=== PATIENT | male | born 1980 | race American Indian/Alaskan Native ===

== ENCOUNTER 2021-02-02 22:32 | Inpatient (IN) | payer OTHER ==
[2021-02-02] MEDS ORDERED: FAMOTIDINE 20 MG/2 ML INJ IV ONE (23:15)
[2021-02-02] MEDS ORDERED: SODIUM CHLORIDE 0.9% 1000 ML 1,000 ML IV ONE (23:15)
[2021-02-02] MEDS ORDERED: MORPHINE 4 MG/1 ML INJ IV ONE (23:15)
[2021-02-02] MEDS ORDERED: DICYCLOMINE 20 MG TAB PO ONE (23:15)
[2021-02-02] MEDS ORDERED: ONDANSETRON 4 MG/2 ML INJ IV ONE (23:15)
[2021-02-02 23:19] LABS: Bilirubin,Urine NEG (Negative); Blood,Urine NEG (Negative); Color,Urine Amber (Yellow); Mucus,Urine FEW /HPF; Protein,Urine <15 mg/dL mg/dL (Negative)
[2021-02-03 00:23] LABS: Basophils % (Auto) 0.3 % (0.0-1.8); Eosinophils # (Auto) 0.1 K/mm3 (0.0-0.4); Hematocrit 43.8 % (35.5-45.6); Hemoglobin 14.8 gm/dl (11.8-15.2); Lymphocytes # (Auto) 1.9 K/mm3 (1.2-5.4); Lymphocytes % (Auto) 22.9 % (13.4-35.0); Mean Corpuscular HGB Conc 34 % (32-34); Mean Corpuscular Volume 91 fl (84-94); Monocytes # (Auto) 0.9 K/mm3 (0.0-0.8); Monocytes % (Auto) 10.2 % (0.0-7.3); Platelet Count 251 K/mm3 (140-440); Red Cell Distribution Width 13.4 % (13.2-15.2)
[2021-02-03 00:55] LABS: Alanine Aminotransferase 225 units/L (7-56); Albumin 4.5 g/dL (3.9-5); BUN/Creatinine Ratio 10; Blood Urea Nitrogen 9 mg/dL (9-20); Calcium 9.6 mg/dL (8.4-10.2); Hemolysis Index 3
--- NOTE | 2021-02-03 00:56 | Emergency Department Report ---
ED Abdominal Pain HPI - General Chief Complaint: Abdominal Pain Stated Complaint: ABD PAIN Time Seen by Provider: 02/02/21 23:15 Source: patient Mode of arrival: Ambulatory Limitations: No Limitations - History of Present Illness Initial Comments: This is a 40-year-old male nontoxic, well nourished in appearance, no acute signs of distress presents to the ED with c/o of nausea and abdominal pain several days. Patient denies any vomiting. Patient describes abdominal pain as cramping and aching with level of 8/10 to mid and upper abdomen. Patient denies any radiation of pain. Patient denies chest pain, short of breath, fever, hemoptysis, blood in stool, chills, headache, stiff neck, numbness or tingling. Patient denies any diarrhea or constipation. Denies any blood in stool. Patient denies any recent travels. Patient denies any drug allergies or significant past medical history. MD Complaint: abdominal pain -: days(s) Location: LUQ, RUQ Radiation: none Migration to: no migration Severity: mild Severity scale (0 -10): 8 Quality: cramping, aching Consistency: constant Improves With: nothing Worsens With: nothing Associated Symptoms: nausea. denies: vomiting, diarrhea, fever, chills, constipation, dysuria, hematemesis, hematochezia, melena, hematuria, anorexia, syncope - Related Data Allergies Allergy/AdvReac Type Severity Reaction Status Date / Time No Known Allergies Allergy Unverified 02/02/21 22:45 ED Review of Systems ROS: Stated complaint: ABD PAIN Other details as noted in HPI Comment: All other systems reviewed and negative Constitutional: denies: chills, fever Eyes: denies: eye pain, eye discharge, vision change ENT: denies: ear pain, throat pain Respiratory: denies: cough, shortness of breath, wheezing Cardiovascular: denies: chest pain, palpitations Endocrine: no symptoms reported Gastrointestinal: abdominal pain, nausea. denies: vomiting, diarrhea, constipation, hematemesis, melena, hematochezia Genitourinary: denies: urgency, dysuria Musculoskeletal: denies: back pain, joint swelling, arthralgia Skin: denies: rash, lesions Neurological: denies: headache, weakness, paresthesias Psychiatric: denies: anxiety, depression Hematological/Lymphatic: denies: easy bleeding, easy bruising ED Past Medical Hx - Past Medical History Previous Medical History?: No - Surgical History Past Surgical History?: No - Social History Smoking Status: Never Smoker Substance Use Type: Alcohol ED Physical Exam - General Limitations: No Limitations General appearance: alert, in no apparent distress - Head Head exam: Present: atraumatic, normocephalic - Eye Eye exam: Present: normal appearance - Neck Neck exam: Present: normal inspection, full ROM. Absent: tenderness, meningismus, lymphadenopathy - Respiratory Respiratory exam: Present: normal lung sounds bilaterally. Absent: respiratory distress, wheezes, rales, rhonchi, stridor, chest wall tenderness, accessory muscle use, decreased breath sounds, prolonged expiratory - Cardiovascular Cardiovascular Exam: Present: regular rate, normal rhythm, normal heart sounds. Absent: bradycardia, tachycardia, irregular rhythm, systolic murmur, diastolic murmur, rubs, gallop - GI/Abdominal GI/Abdominal exam: Present: distended (diffuse), tenderness (upper), normal bowel sounds. Absent: soft, guarding, rebound, rigid, diminished bowel sounds - Extremities Exam Extremities exam: Present: normal inspection, full ROM - Back Exam Back exam: Present: normal inspection, full ROM. Absent: tenderness, CVA tenderness (R), CVA tenderness (L), muscle spasm, paraspinal tenderness, vertebral tenderness, rash noted - Neurological Exam Neurological exam: Present: alert, oriented X3, normal gait - Psychiatric Psychiatric exam: Present: normal affect, normal mood - Skin Skin exam: Present: warm, dry, intact, normal color. Absent: rash ED Course Vital Signs 02/02/21 02/02/21 02/02/21 22:46 23:23 23:53 Temperature 98.2 F Pulse Rate 85 Respiratory 16 16 16 Rate Blood Pressure 152/95 O2 Sat by Pulse 98 Oximetry - Reevaluation(s) Reevaluation #1: 02/03/21 01:32 Patient is speaking in full sentences with no signs of distress noted. - Consultations Consultation #1: 02/03/21 02:46 Patient has been consulted with Dr. Woods about patient history, physical exam, and labs/CT results and agrees to the ED plan of care with NPO, IV fluids, and antibiotics and admission with hospitalist Consultation #2: 02/03/21 03:48 Patient has been consulted with Dr. Hermosillo (hospitalist) about patient history, physical exam, and labs/CT results and accepts patient with bridge orders to surgery. ED Medical Decision Making - Lab Data Result diagrams: 02/02/21 23:16 02/02/21 23:16 Lab Results 02/02/21 02/02/21 02/02/21 Range/Units 22:56 23:16 23:16 WBC 8.4 (4.5-11.0) K/mm3 RBC 4.80 (3.65-5.03) M/mm3 Hgb 14.8 (11.8-15.2) gm/dl Hct 43.8 (35.5-45.6) % MCV 91 (84-94) fl MCH 31 (28-32) pg MCHC 34 (32-34) % RDW 13.4 (13.2-15.2) % Plt Count 251 (140-440) K/mm3 Lymph % (Auto) 22.9 (13.4-35.0) % [place] % (Auto) 10.2 H (0.0-7.3) % Eos % (Auto) 1.0 (0.0-4.3) % Baso % (Auto) 0.3 (0.0-1.8) % Lymph # (Auto) 1.9 (1.2-5.4) K/mm3 [place] # (Auto) 0.9 H (0.0-0.8) K/mm3 Eos # (Auto) 0.1 (0.0-0.4) K/mm3 Baso # (Auto) 0.0 (0.0-0.1) K/mm3 Seg Neutrophils % 65.6 (40.0-70.0) % Seg Neutrophils # 5.5 (1.8-7.7) K/mm3 Sodium 136 L (137-145) mmol/L Potassium 3.9 (3.6-5.0) mmol/L Chloride 95.6 L (98-107) mmol/L Carbon Dioxide 32 H (22-30) mmol/L Anion Gap 12 mmol/L BUN 9 (9-20) mg/dL Creatinine 0.9 (0.8-1.3) mg/dL Estimated GFR > 60 ml/min BUN/Creatinine Ratio 10 % Glucose 95 (75-100) mg/dL Calcium 9.6 (8.4-10.2) mg/dL Total Bilirubin 2.10 H (0.1-1.2) mg/dL AST 220 H (5-40) units/L ALT 225 H (7-56) units/L Alkaline Phosphatase 298 H (35-129) units/L Total Protein 7.8 (6.3-8.2) g/dL Albumin 4.5 (3.9-5) g/dL Albumin/Globulin Ratio 1.4 % Lipase (13-60) units/L Urine Color [place] (Yellow) Urine Turbidity Clear (Clear) Urine pH 6.0 (5.0-7.0) Ur Specific [place] 1.018 (1.003-1.030) Urine Protein <15 mg/dl (Negative) mg/dL Urine Glucose (UA) Neg (Negative) mg/dL Urine Ketones Neg (Negative) mg/dL Urine Blood Neg (Negative) Urine Nitrite Neg (Negative) Urine Bilirubin Neg (Negative) Urine Urobilinogen 4.0 (<2.0) mg/dL Ur Leukocyte Esterase Neg (Negative) Urine WBC (Auto) 2.0 (0.0-6.0) /HPF Urine RBC (Auto) 1.0 (0.0-6.0) /HPF U Epithel Cells (Auto) < 1.0 (0-13.0) /HPF Urine Mucus Few /HPF 02/02/21 Range/Units 23:16 WBC (4.5-11.0) K/mm3 RBC (3.65-5.03) M/mm3 Hgb (11.8-15.2) gm/dl Hct (35.5-45.6) % MCV (84-94) fl MCH (28-32) pg MCHC (32-34) % RDW (13.2-15.2) % Plt Count (140-440) K/mm3 Lymph % (Auto) (13.4-35.0) % [place] % (Auto) (0.0-7.3) % Eos % (Auto) (0.0-4.3) % Baso % (Auto) (0.0-1.8) % Lymph # (Auto) (1.2-5.4) K/mm3 [place] # (Auto) (0.0-0.8) K/mm3 Eos # (Auto) (0.0-0.4) K/mm3 Baso # (Auto) (0.0-0.1) K/mm3 Seg Neutrophils % (40.0-70.0) % Seg Neutrophils # (1.8-7.7) K/mm3 Sodium (137-145) mmol/L Potassium (3.6-5.0) mmol/L Chloride (98-107) mmol/L Carbon Dioxide (22-30) mmol/L Anion Gap mmol/L BUN (9-20) mg/dL Creatinine (0.8-1.3) mg/dL Estimated GFR ml/min BUN/Creatinine Ratio % Glucose (75-100) mg/dL Calcium (8.4-10.2) mg/dL Total Bilirubin (0.1-1.2) mg/dL AST (5-40) units/L ALT (7-56) units/L Alkaline Phosphatase (35-129) units/L Total Protein (6.3-8.2) g/dL Albumin (3.9-5) g/dL Albumin/Globulin Ratio % Lipase 16 (13-60) units/L Urine Color (Yellow) Urine Turbidity (Clear) Urine pH (5.0-7.0) Ur Specific [place] (1.003-1.030) Urine Protein (Negative) mg/dL Urine Glucose (UA) (Negative) mg/dL Urine Ketones (Negative) mg/dL Urine Blood (Negative) Urine Nitrite (Negative) Urine Bilirubin (Negative) Urine Urobilinogen (<2.0) mg/dL Ur Leukocyte Esterase (Negative) Urine WBC (Auto) (0.0-6.0) /HPF Urine RBC (Auto) (0.0-6.0) /HPF U Epithel Cells (Auto) (0-13.0) /HPF Urine Mucus /HPF - Radiology Data [facility] [address] [place] [address] Cat Scan Report Signed Patient: DESIREE DENG MR#: [id number] : 1980 Acct:[id number] Age/Sex: 40 / M ADM Date: 02/02/21 Loc: ED Attending Dr: Gonzalez rodriguez Physician: JERRY MACE NP Date of Service: 02/02/21 Procedure(s): CT abdomen pelvis w con Accession Number(s): [id number] cc: JERRY MACE NP CT abdomen pelvis w con INDICATION / CLINICAL INFORMATION: abd pain. TECHNIQUE: Axial CT imaging of abdomen and pelvis was obtained with IV contrast. Coronal and sagittal reformatted imaging obtained and reviewed. All CT scans at this location are performed using CT dose reduction for ALARA by means of automated exposure control. COMPARISON: None available. FINDINGS: CT abdomen with IV contrast demonstrates normal appearance of the liver, spleen, pancreas, kidneys, and adrenal glands. Gallbladder is present and without obvious abnormality. No b iliary dilatation. There is focal severe inflammatory change in the right mid abdomen, in the proximal ascending colon, just above the level of the ileocecal valve. There is focal colonic wall thickening with beka rowing of the lumen. The appearance is certainly very worrisome for colonic neoplasm. There is focal inflammatory change posterior to the colon at this level possibly representing a contained localized perforation. No definite free air or free fluid is noted. This inflammatory masslike process is separate from the normal appearing appendix and normal-appearing terminal ileum. There is no mechanical bowel obstruction. There is mild gaseous distention of the transverse colon possibly related to mild ileus. CT pelvis with contrast is otherwise unremarkable. No pelvic mass, free fluid, or additional sites of inflammatory change. Visualized lung bases are clear. No acute significant osseous abnormality. IMPRESSION: 1. This is an abnormal CT scan. 2. There is severe focal inflammatory change with colonic wall thickening in the proximal ascending colon, just above the region of the ileocecal valve. The appearance is worrisome for colonic neoplasm with localized contained perforation posteriorly. 3. No evidence of mechanical bowel obstruction. Signer Name: Julia Can MD Signed: 02/03/2021 2:14 AM Workstation Name: [id number] Transcribed By: Dictated By: Julia perez MD Electronically Authenticated By: Julia Can MD Signed Date/Time: 02/03/21213 DD/ 5 TD/TT: - Medical Decision Making 4-year-old male that presents with colonic wall thickening with possible perforation. Patient stable and was examined by me. Patient placed on n.p.o. IV resuscitation with IV antibiotics administered. Patient consulted with general surgery and accepted with hospitalist. Vitals signs are stable. At time of admission, the patient does not seem toxic or ill in appearance. No acute signs of distress noted. Patient agrees to admission treatment plan of care. No further questions noted by the patient. Critical care attestation.: If time is entered above; I have spent that time in minutes in the direct care of this critically ill patient, excluding procedure time. ED Disposition Clinical Impression: Colon wall thickening Disposition: DC-[id number] OP ADMIT IP TO THIS HOSP Is pt being admited?: Yes Condition: Stable
--- NOTE | 2021-02-03 02:18 | Cat Scan Report ---
CT abdomen pelvis w con INDICATION / CLINICAL INFORMATION: abd pain. TECHNIQUE: Axial CT imaging of abdomen and pelvis was obtained with IV contrast. Coronal and sagittal reformatte d imaging obtained and reviewed. All CT scans at this location are performed using CT dose reduction for ALARA by means of automated exposure control. COMPARISON: None available. FINDINGS: CT abdomen with IV contrast demonstrates normal appearance of the liver, spleen, pancreas, kidneys, a nd adrenal glands. Gallbladder is present and without obvious abnormality. No biliary dilatation. There is focal severe inflammatory change in the right mid abdomen, in the proximal ascending colon, just above the level of the ileocecal valve. There is focal colonic wall thickening with narrowing of the lumen. The appearance is certainly very worrisome for colonic neoplasm. There is focal inflammat ory change posterior to the colon at this level possibly representing a contained localized perforati on. No definite free air or free fluid is noted. This inflammatory masslike process is separate from the normal appearing appendix and normal-appearing terminal ileum. There is no mechanical bowel obstr uction. There is mild gaseous distention of the transverse colon possibly related to mild ileus. CT pelvis with contrast is otherwise unremarkable. No pelvic mass, free fluid, or additional sites of inflammatory change. Visualized lung bases are clear. No acute significant osseous abnormality. IMPRESSION: 1. This is an abnormal CT scan. 2. There is severe focal inflammatory change with colonic wall thickening in the proximal ascending c olon, just above the region of the ileocecal valve. The appearance is worrisome for colonic neoplasm with localized contained perforation posteriorly. 3. No evidence of mechanical bowel obstruction. Signer Name: Julia Can MD Signed: 02/03/2021 2:14 AM Workstation Name: [id number]
[2021-02-03] MEDS ORDERED: PIPERACIL/TAZOBACTA 4.5/NS 100 4.5 GM/100 ML VIAL IV ONE (02:46)
[2021-02-03] MEDS ORDERED: ONDANSETRON 4 MG/2 ML INJ IV PRN (05:28)
[2021-02-03] MEDS ORDERED: MORPHINE 2 MG/1 ML INJ IV PRN (05:28)
[2021-02-03] MEDS ORDERED: ACETAMINOPHEN 325 MG TAB PO PRN (05:28)
[2021-02-03] MEDS ORDERED: hydrALAZINE 20 MG/1 ML INJ IV PRN (05:29)
--- NOTE | 2021-02-03 05:34 | History and Physical Report ---
History of Present Illness Date of examination: 02/03/21 Date of admission: 02/03/21 04:38 Chief complaint: Abdominal pain History of present illness: 40-year-old male with no significant past medical history was brought to the emergency room because of nausea and abdominal pain several days. Patient denies any vomiting. Patient describes abdominal pain as cramping and aching with level of 8/10 to mid and upper abdomen. Patient denies any radiation of pain. Patient denies chest pain, short of breath, fever, hemoptysis, blood in stool, chills, headache, stiff neck, numbness or tingling. Patient denies any diarrhea or constipation. Denies any blood in stool. In the emergency room patient is a CT scan of the abdomen which shows severe focal inflammatory change with chronic wall thickening in the proximal ascending colon, just above the region of the ileocecal valve the appearance is worrisome for colonic neoplasm with localized contained perforation posteriorly. No evidence of mechanical bowel obstruction Medications and Allergies Allergies Allergy/AdvReac Type Severity Reaction Status Date / Time No Known Allergies Allergy Unverified 02/02/21 22:45 Review of Systems Gastrointestinal: abdominal pain, nausea Exam - Constitutional Vitals: Temp Pulse Resp BP Pulse Ox 98.2 F 73 16 126/79 100 02/03/21 04:59 02/03/21 04:59 02/03/21 04:59 02/03/21 04:59 02/03/21 04:59 General appearance: Present: no acute distress, well-nourished - EENT Eyes: Present: PERRL ENT: hearing intact, clear oral mucosa - Neck Neck: Present: supple, normal ROM - Respiratory Respiratory effort: normal Respiratory: bilateral: CTA - Cardiovascular Heart Sounds: Present: S1 & S2. Absent: rub, click - Extremities Extremities: pulses symmetrical, No edema Peripheral Pulses: within normal limits - Abdominal General gastrointestinal: Present: soft, tender, non-distended, hypoactive bowel sounds Male genitourinary: Present: normal - Integumentary Integumentary: Present: clear, warm, dry - Musculoskeletal Musculoskeletal: gait normal, strength equal bilaterally - Psychiatric Psychiatric: appropriate mood/affect, intact judgment & insight - Neurologic Neurologic: CNII-XII intact, moves all extremities Results - Labs CBC & Chem 7: 02/02/21 23:16 02/02/21 23:16 Labs: Laboratory Last Values WBC 8.4 K/mm3 (4.5-11.0) 02/02/21 23:16 RBC 4.80 M/mm3 (3.65-5.03) 02/02/21 23:16 Hgb 14.8 gm/dl (11.8-15.2) 02/02/21 23:16 Hct 43.8 % (35.5-45.6) 02/02/21 23:16 MCV 91 fl (84-94) 02/02/21 23:16 MCH 31 pg (28-32) 02/02/21 23:16 MCHC 34 % (32-34) 02/02/21 23:16 RDW 13.4 % (13.2-15.2) 02/02/21 23:16 Plt Count 251 K/mm3 (140-440) 02/02/21 23:16 Lymph % (Auto) 22.9 % (13.4-35.0) 02/02/21 23:16 [place] % (Auto) 10.2 % (0.0-7.3) H 02/02/21 23:16 Eos % (Auto) 1.0 % (0.0-4.3) 02/02/21 23:16 Baso % (Auto) 0.3 % (0.0-1.8) 02/02/21 23:16 Lymph # (Auto) 1.9 K/mm3 (1.2-5.4) 02/02/21 23:16 [place] # (Auto) 0.9 K/mm3 (0.0-0.8) H 02/02/21 23:16 Eos # (Auto) 0.1 K/mm3 (0.0-0.4) 02/02/21 23:16 Baso # (Auto) 0.0 K/mm3 (0.0-0.1) 02/02/21 23:16 Seg Neutrophils % 65.6 % (40.0-70.0) 02/02/21 23:16 Seg Neutrophils # 5.5 K/mm3 (1.8-7.7) 02/02/21 23:16 Sodium 136 mmol/L (137-145) L 02/02/21 23:16 Potassium 3.9 mmol/L (3.6-5.0) 02/02/21 23:16 Chloride 95.6 mmol/L (98-107) L 02/02/21 23:16 Carbon Dioxide 32 mmol/L (22-30) H 02/02/21 23:16 Anion Gap 12 mmol/L 02/02/21 23:16 BUN 9 mg/dL (9-20) 02/02/21 23:16 Creatinine 0.9 mg/dL (0.8-1.3) 02/02/21 23:16 Estimated GFR > 60 ml/min 02/02/21 23:16 BUN/Creatinine Ratio 10 % 02/02/21 23:16 Glucose 95 mg/dL (75-100) 02/02/21 23:16 Calcium 9.6 mg/dL (8.4-10.2) 02/02/21 23:16 Total Bilirubin 2.10 mg/dL (0.1-1.2) H 02/02/21 23:16 AST 220 units/L (5-40) H 02/02/21 23:16 ALT 225 units/L (7-56) H 02/02/21 23:16 Alkaline Phosphatase 298 units/L (35-129) H 02/02/21 23:16 Total Protein 7.8 g/dL (6.3-8.2) 02/02/21 23:16 Albumin 4.5 g/dL (3.9-5) 02/02/21 23:16 Albumin/Globulin Ratio 1.4 % 02/02/21 23:16 Lipase 16 units/L (13-60) 02/02/21 23:16 Urine Color [place] (Yellow) 02/02/21 22:56 Urine Turbidity Clear (Clear) 02/02/21 22:56 Urine pH 6.0 (5.0-7.0) 02/02/21 22:56 Ur Specific [place] 1.018 (1.003-1.030) 02/02/21 22:56 Urine Protein <15 mg/dl mg/dL (Negative) 02/02/21 22:56 Urine Glucose (UA) Neg mg/dL (Negative) 02/02/21 22:56 Urine Ketones Neg mg/dL (Negative) 02/02/21 22:56 Urine Blood Neg (Negative) 02/02/21 22:56 Urine Nitrite Neg (Negative) 02/02/21 22:56 Urine Bilirubin Neg (Negative) 02/02/21 22:56 Urine Urobilinogen 4.0 mg/dL (<2.0) 02/02/21 22:56 Ur Leukocyte Esterase Neg (Negative) 02/02/21 22:56 Urine WBC (Auto) 2.0 /HPF (0.0-6.0) 02/02/21 22:56 Urine RBC (Auto) 1.0 /HPF (0.0-6.0) 02/02/21 22:56 U Epithel Cells (Auto) < 1.0 /HPF (0-13.0) 02/02/21 22:56 Urine Mucus Few /HPF 02/02/21 22:56 - Imaging and Cardiology CT scan - abdomen: report reviewed Assessment and Plan VTE prophylaxis?: Chemical Plan of care discussed with patient/family: Yes - Patient Problems (1) Perforation of colon Current Visit: Yes Status: Acute Plan to address problem: Admit the patient to the medical telemetry. N.p.o. D5 half-normal saline at the rate of 100 cc/h. Pepcid 20 mg IV every 12 hours. Morphine 2 mg IV every 4 hours as needed. Zofran 4 mg IV every 6 hours as needed. Zosyn 4.5 g IV every 8 hours. Will consult surgery for evaluation and treatment (2) Abdominal pain Current Visit: Yes Status: Acute Plan to address problem: N.p.o. D5 half-normal saline at the rate of 100 cc/h. Pepcid 20 mg IV every 12 hours. Morphine 2 mg IV every 4 hours as needed. Zofran 4 mg IV every 6 hours as needed. Zosyn 4.5 g IV every 8 hours. Will consult surgery for evaluation and treatment (3) Nausea Current Visit: Yes Status: Acute Plan to address problem: N.p.o. D5 half-normal saline at the rate of 100 cc/h. Pepcid 20 mg IV every 12 hours. Zofran 4 mg IV every 6 hours as needed. (4) Colon wall thickening Current Visit: Yes Status: Acute Plan to address problem: Zosyn 4.5 g IV every 8 hours. Will consult surgery for evaluation and treatment (5) DVT prophylaxis Current Visit: Yes Status: Acute Plan to address problem: Heparin 5000 units subcu every 8 hours for DVT prophylaxis. Pepcid 20 mg IV every 12 hours for GI prophylaxis. Patient is a full code
[2021-02-03] MEDS: HEPARIN 5,000 UNIT/1 ML VIAL SUB-Q SCH ×3 (07:06→21:50)
[2021-02-03] MEDS: D5W/0.45% NACL 1,000 ML IV SCH (07:08)
[2021-02-03] MEDS: IPRATROPIUM/ALBUTEROL SULFATE 3 ML AMPUL.NEB IH SCH ×3 (08:38→22:25)
--- NOTE | 2021-02-03 10:18 | Event Note ---
Date: 02/03/21 Patient was seen and evaluated this morning. Patient was admitted earlier this morning for the management of perforated colon and colonic mass. Patient is n.p.o., IV antibiotics and IV fluids. General surgery is consulted and will see the patient. Continue management as outlined in HPI..
[2021-02-03] MEDS: PIPERACIL/TAZOBACTA 4.5/NS 100 4.5 GM/100 ML VIAL IV SCH ×2 (10:27→19:42)
[2021-02-03] MEDS: FAMOTIDINE 20 MG/2 ML INJ IV SCH ×2 (10:27→21:49)
--- NOTE | 2021-02-03 16:26 | Consultation ---
History of Present Illness Consult date: 02/03/21 Reason for consult: abdominal pain Chief complaint: abdominal pain - History of present illness History of present illness: 40 yo M with no PMHx who presents to ER with 7 day hx of worsening crampy abdomi nal pain. Pain located in lower abdomen, more towards the right side. It does not radiate. It is made worse when he turns to his right side. He has never had pain like this before. He has been having normal BMs. No hematochezia or melena. No change in caliber or character of stools. No n/v, f/c, cp, sob. No abnormal weight loss. He has been tolerating a diet. He has no known famhx of colon malignancy. He has never had a cscope Past History Past Medical History: No medical history Past Surgical History: No surgical history Social history: no significant social history Family history: no significant family history Medications and Allergies Allergies Allergy/AdvReac Type Severity Reaction Status Date / Time No Known Allergies Allergy Verified 02/03/21 05:37 Active Meds: Active Medications Acetaminophen (Acetaminophen 325 Mg Tab) 650 mg PO Q4H PRN PRN Reason: Pain MILD(1-3)/Fever >100.5/MARTINS Albuterol/Ipratropium (Ipratropium/Albuterol Sulfate 3 Ml Ampul.Neb) 1 ampul IH Q6HRT [facility] Last Admin: 02/03/21 08:38 Dose: Not Given Documented by: Famotidine (Famotidine 20 Mg/2 Ml Inj) 20 mg IV BID [facility] Last Admin: 02/03/21 10:27 Dose: 20 mg Documented by: Heparin Sodium (Porcine) (Heparin 5,000 Unit/1 Ml Vial) 5,000 unit SUB-Q Q8HR [facility] Last Admin: 02/03/21 16:08 Dose: Not Given Documented by: Hydralazine HCl (Hydralazine 20 Mg/1 Ml Inj) 10 mg IV Q6H PRN PRN Reason: SBP >/=160; DBP >/=100 Dextrose/Sodium Chloride (D5/0.45ns) 1,000 mls @ 100 mls/hr IV DIRECT [facility] Last Admin: 02/03/21 07:08 Dose: 100 mls/hr Documented by: Piperacillin Sod/Tazobactam Sod (Zosyn/Ns 4.5gm/100ml) 4.5 gm in 100 mls @ 200 mls/hr IV Q8H [facility]; Protocol Last Admin: 02/03/21 10:27 Dose: 200 mls/hr Documented by: Morphine Sulfate (Morphine 2 Mg/1 Ml Inj) 2 mg IV Q4H PRN PRN Reason: Pain, Moderate (4-6) Last Admin: 02/03/21 10:27 Dose: 2 mg Documented by: Ondansetron HCl (Ondansetron 4 Mg/2 Ml Inj) 4 mg IV Q8H PRN PRN Reason: Nausea And Vomiting Sodium Chloride (Sodium Chloride 0.9% 10 Ml Flush Syringe) 10 ml IV BID [facility] Last Admin: 02/03/21 09:59 Dose: 10 ml Documented by: Sodium Chloride (Sodium Chloride 0.9% 10 Ml Flush Syringe) 10 ml IV PRN PRN PRN Reason: LINE FLUSH Review of Systems All systems: negative (10 pt ROS performed and negative except for that listed in HPI) Exam Vital Signs Temp Pulse Resp BP Pulse Ox 98.2 F 85 16 152/95 98 02/02/21 22:46 02/02/21 22:46 02/02/21 22:46 02/02/21 22:46 02/02/21 22:46 Narrative exam: Gen: AAOx3. NAD ENT: No scleral icterus or conjunctival pallor CV: s1, S2+ Resp: even and unlabored Abd: soft, ND, localized TTP over right lower abdomen without rebound, rigidity or guarding. Ext: no c/c/e Results - Labs 02/02/21 23:16 02/02/21 23:16 Abnormal lab results 02/02/21 02/02/21 Range/Units 23:16 23:16 [place] % (Auto) 10.2 H (0.0-7.3) % [place] # (Auto) 0.9 H (0.0-0.8) K/mm3 Sodium 136 L (137-145) mmol/L Chloride 95.6 L (98-107) mmol/L Carbon Dioxide 32 H (22-30) mmol/L Total Bilirubin 2.10 H (0.1-1.2) mg/dL AST 220 H (5-40) units/L ALT 225 H (7-56) units/L Alkaline Phosphatase 298 H (35-129) units/L Diabetes panel 02/02/21 Range/Units 23:16 Sodium 136 L (137-145) mmol/L Potassium 3.9 (3.6-5.0) mmol/L Chloride 95.6 L (98-107) mmol/L Carbon Dioxide 32 H (22-30) mmol/L BUN 9 (9-20) mg/dL Creatinine 0.9 (0.8-1.3) mg/dL Glucose 95 (75-100) mg/dL Calcium 9.6 (8.4-10.2) mg/dL AST 220 H (5-40) units/L ALT 225 H (7-56) units/L Alkaline Phosphatase 298 H (35-129) units/L Total Protein 7.8 (6.3-8.2) g/dL Albumin 4.5 (3.9-5) g/dL Calcium panel 02/02/21 Range/Units 23:16 Calcium 9.6 (8.4-10.2) mg/dL Albumin 4.5 (3.9-5) g/dL Pituitary panel 02/02/21 Range/Units 23:16 Sodium 136 L (137-145) mmol/L Potassium 3.9 (3.6-5.0) mmol/L Chloride 95.6 L (98-107) mmol/L Carbon Dioxide 32 H (22-30) mmol/L BUN 9 (9-20) mg/dL Creatinine 0.9 (0.8-1.3) mg/dL Glucose 95 (75-100) mg/dL Calcium 9.6 (8.4-10.2) mg/dL Adrenal panel 02/02/21 Range/Units 23:16 Sodium 136 L (137-145) mmol/L Potassium 3.9 (3.6-5.0) mmol/L Chloride 95.6 L (98-107) mmol/L Carbon Dioxide 32 H (22-30) mmol/L BUN 9 (9-20) mg/dL Creatinine 0.9 (0.8-1.3) mg/dL Glucose 95 (75-100) mg/dL Calcium 9.6 (8.4-10.2) mg/dL Total Bilirubin 2.10 H (0.1-1.2) mg/dL AST 220 H (5-40) units/L ALT 225 H (7-56) units/L Alkaline Phosphatase 298 H (35-129) units/L Total Protein 7.8 (6.3-8.2) g/dL Albumin 4.5 (3.9-5) g/dL - Imaging CT scan - abdomen: report reviewed, image reviewed CT scan - pelvis: report reviewed, image reviewed Assessment and Plan 40 yo M with right sided abdominal pain, ascending colon thickening with contained perf, concern for colon mass Pt stable. Afebrile. WBC normal. Plan: 1. May have clear liquids - do not advance 2. continue empiric abx 3. IVF 4. prn pain control 5. DVT ppx 6. Gi consult - needs screening cscope. Timing per GI. 7. Discussed abnormal CT findings with patient and at bedside. Explained that as he is currently stable, (normal WBC, no f/c, localized pain without peritonitis, not bleeding/obstructed), and emergent surgery is not indicated at this time. Thank you, please call with questions.
[2021-02-04] MEDS: PIPERACIL/TAZOBACTA 4.5/NS 100 4.5 GM/100 ML VIAL IV SCH ×3 (02:15→17:05)
[2021-02-04] MEDS: IPRATROPIUM/ALBUTEROL SULFATE 3 ML AMPUL.NEB IH SCH ×4 (03:37→21:26)
[2021-02-04] MEDS: HEPARIN 5,000 UNIT/1 ML VIAL SUB-Q SCH ×3 (06:10→21:53)
[2021-02-04] MEDS: D5W/0.45% NACL 1,000 ML IV SCH ×2 (06:16→22:40)
[2021-02-04 06:36] LABS: Basophils % (Auto) 0.5 % (0.0-1.8); Eosinophils # (Auto) 0.1 K/mm3 (0.0-0.4); Eosinophils % (Auto) 1.1 % (0.0-4.3); Hematocrit 37.8 % (35.5-45.6); Hemoglobin 13.1 gm/dl (11.8-15.2); Lymphocytes # (Auto) 1.5 K/mm3 (1.2-5.4); Lymphocytes % (Auto) 18.5 % (13.4-35.0); Mean Corpuscular HGB Conc 35 % (32-34); Mean Corpuscular Volume 90 fl (84-94); Monocytes # (Auto) 0.9 K/mm3 (0.0-0.8); Monocytes % (Auto) 10.8 % (0.0-7.3); Platelet Count 206 K/mm3 (140-440); Red Cell Distribution Width 13.3 % (13.2-15.2)
[2021-02-04 06:48] LABS: Alanine Aminotransferase 112 units/L (7-56); Albumin 3.7 g/dL (3.9-5); BUN/Creatinine Ratio 7; Blood Urea Nitrogen 7 mg/dL (9-20); Calcium 9.4 mg/dL (8.4-10.2); Hemolysis Index 8
--- NOTE | 2021-02-04 08:54 | Gastroenterology Consultation ---
History of Present Illness - Reason for Consult Consult date: 02/04/[address] Requesting physician: CHANI OTTO - History of Present Illness Is a pleasant 40-year-old gentleman who presents with 2 weeks of worsening abdominal pain Patient reports about 2 weeks ago he started to have periumbilical pain which is vague mild cramping however he reports over the next week he started to progress travel to the right lower quadrant Patient reports that the pain is getting worse since then He reports that the right lower quadrant pain is sharp severe worse with pushing on it better with nothing he reports still having bowel movements in fact he reports he just had a bowel movement right before I came into the room he reports it was normal looking no blood No weight loss No family history colon cancer never had a colonoscopy Obtained/updated/reviewed patient's current medications Past History Past Medical History: No medical history Past Surgical History: No surgical history Social history: no significant social history Family history: no significant family history Medications and Allergies Allergies Allergy/AdvReac Type Severity Reaction Status Date / Time No Known Allergies Allergy Verified 02/03/21 05:37 Home Medications Medication Instructions Recorded Confirmed Last Taken Type No Known Home Medications [No 02/03/21 02/03/21 Unknown History Reported Home Medications] Active Meds: Active Medications Acetaminophen (Acetaminophen 325 Mg Tab) 650 mg PO Q4H PRN PRN Reason: Pain MILD(1-3)/Fever >100.5/MARTINS Albuterol/Ipratropium (Ipratropium/Albuterol Sulfate 3 Ml Ampul.Neb) 1 ampul IH Q6HRT [facility] Last Admin: 02/04/21 08:21 Dose: Not Given Documented by: Famotidine (Famotidine 20 Mg/2 Ml Inj) 20 mg IV BID [facility] Last Admin: 02/03/21 21:49 Dose: 20 mg Documented by: Heparin Sodium (Porcine) (Heparin 5,000 Unit/1 Ml Vial) 5,000 unit SUB-Q Q8HR [facility] Last Admin: 02/04/21 06:10 Dose: 5,000 unit Documented by: Hydralazine HCl (Hydralazine 20 Mg/1 Ml Inj) 10 mg IV Q6H PRN PRN Reason: SBP >/=160; DBP >/=100 Dextrose/Sodium Chloride (D5/0.45ns) 1,000 mls @ 100 mls/hr IV DIRECT [facility] Last Admin: 02/04/21 06:16 Dose: 100 mls/hr Documented by: Piperacillin Sod/Tazobactam Sod (Zosyn/Ns 4.5gm/100ml) 4.5 gm in 100 mls @ 200 mls/hr IV Q8H [facility]; Protocol Last Admin: 02/04/21 02:15 Dose: 200 mls/hr Documented by: Morphine Sulfate (Morphine 2 Mg/1 Ml Inj) 2 mg IV Q4H PRN PRN Reason: Pain, Moderate (4-6) Last Admin: 02/03/21 10:27 Dose: 2 mg Documented by: Ondansetron HCl (Ondansetron 4 Mg/2 Ml Inj) 4 mg IV Q8H PRN PRN Reason: Nausea And Vomiting Sodium Chloride (Sodium Chloride 0.9% 10 Ml Flush Syringe) 10 ml IV BID [facility] Last Admin: 02/03/21 21:50 Dose: 10 ml Documented by: Sodium Chloride (Sodium Chloride 0.9% 10 Ml Flush Syringe) 10 ml IV PRN PRN PRN Reason: LINE FLUSH Review of Systems - Review of Systems All systems: negative (10 Systems reviewed and negative except as mentioned above in the history of present illness) Exam - Constitutional Vital Signs: Temp Pulse Resp BP Pulse Ox 98.8 F 86 16 125/70 94 02/04/21 03:50 02/04/21 03:50 02/04/21 03:50 02/04/21 03:50 02/04/21 03:50 General appearance: no acute distress - EENT Eyes: EOM intact - Neck Neck: supple - Respiratory Respiratory effort: normal Respiratory: right: CTA - Cardiovascular Rhythm: regular - Gastrointestinal General gastrointestinal: Present: soft, tender (Bowel sounds present but decreased in frequency. Tender to palpation right lower quadrant. Negative peritoneal signs) - Integumentary Integumentary: Present: dry - Neurologic Neurological: alert and oriented x3 - Psychiatric Psychiatric: appropriate mood/affect - Labs CBC & Chem 7: 02/04/21 05:47 02/04/21 05:47 Lab Results: Laboratory Results - last 24 hr 02/03/21 02/04/21 02/04/21 23:37 05:47 05:47 WBC 8.3 RBC 4.20 Hgb 13.1 Hct 37.8 D MCV 90 MCH 31 MCHC 35 H RDW 13.3 Plt Count 206 Lymph % (Auto) 18.5 [place] % (Auto) 10.8 H Eos % (Auto) 1.1 Baso % (Auto) 0.5 Lymph # (Auto) 1.5 [place] # (Auto) 0.9 H Eos # (Auto) 0.1 Baso # (Auto) 0.0 Seg Neutrophils % 69.1 Seg Neutrophils # 5.7 Sodium 136 L Potassium 4.1 Chloride 100.4 Carbon Dioxide 29 Anion Gap 11 BUN 7 L Creatinine 1.0 Estimated GFR > 60 BUN/Creatinine Ratio 7 Glucose 98 POC Glucose 127 H Calcium 9.4 Total Bilirubin 2.70 H AST 46 H ALT 112 H Alkaline Phosphatase 230 H Total Protein 6.7 Albumin 3.7 L Albumin/Globulin Ratio 1.2 Assessment and Plan Plan for colonoscopy tomorrow after thorough discussion with the patient Discussion: Differential diagnosis for presentation after reviewing symptoms as well as CAT scan results are malignancy causing mild contained perforation versus inflammatory process such as diverticulitis, appendicitis less likely based upon imaging and presentation. If this is malignancy related then waiting will likely only make the situation worse as of allow for further spread of malignancy and additionally could allow worsening of the perforation, therefore since malignancy appears to be highest on the differential diagnosis based upon the imaging I discussed thoroughly with the patient risk benefits and alt ernatives including the risk of causing worsening perforation with the colonoscopy with the consideration of the benefit that this could significantly improve his clinical course if this is malignancy to make the diagnosis earlier not to wait. After this thorough discussion patient agrees to proceed with colonoscopy tomorrow Clear liquid diet today Tanisha gomez n.p.o. past midnight for colonoscopy tomorrow Continue antibiotics in the meantime - Patient Problems (1) Right lower quadrant abdominal pain Current Visit: Yes Status: Acute (2) Abdominal pain Current Visit: Yes Status: Acute (3) Colon wall thickening Current Visit: Yes Status: Acute
[2021-02-04] MEDS: FAMOTIDINE 20 MG/2 ML INJ IV SCH ×2 (09:17→21:53)
--- NOTE | 2021-02-04 15:52 | Progress Note ---
Assessment and Plan Assessment and plan: --Contained perforation of colon Current Visit: Yes Status: Acute N.p.o. status, IV fluids, GI and surgery evaluated, possible colonoscopy tomorrow Continue supportive care --Abdominal pain Current Visit: Yes Status: Acute Symptomatic management, IV fluids and pain medications Possible colonoscopy tomorrow --Intractable nausea vomiting; Current Visit: Yes Status: Acute antiemetics and supportive care --Colon wall thickening with contained perforation Current Visit: Yes Status: Acute Concern for malignancy /tumor Zosyn 4.5 g IV every 8 hours. Surgery and GI following the patient -- DVT prophylaxis Current Visit: Yes Status: Acute Heparin 5000 units subcu every 8 hours for DVT prophylaxis. --GI prophylaxis Pepcid 20 mg IV every 12 hours. We will closely monitor the patient and adjust the management as needed Plan of care reviewed with the patient and his nurse History Interval history: I have seen and examined the patient at the bedside Patient's chart and medications reviewed Patient was admitted with abdominal pain Surgery and GI evaluation noted and appreciated Possible colonoscopy tomorrow patient patient complains of some diarrhea with blood Vital signs noted Hospitalist Physical - Constitutional Vitals: Temp Pulse Resp BP Pulse Ox 96.4 F L 70 18 136/76 97 02/04/21 12:35 02/04/21 12:35 02/04/21 12:35 02/04/21 12:35 02/04/21 12:35 General appearance: Present: no acute distress, well-nourished - EENT Eyes: Present: PERRL, EOM intact - Neck Neck: Present: supple, normal ROM - Respiratory Respiratory effort: normal Respiratory: bilateral: diminished, negative: rales, rhonchi, wheezing - Cardiovascular Rhythm: regular Heart Sounds: Present: S1 & S2 - Extremities Extremities: no ischemia, No edema - Abdominal General gastrointestinal: soft, tender (No guarding no rigidity), hypoactive bowel sounds - Integumentary Integumentary: Present: clear, warm - Psychiatric Psychiatric: appropriate mood/affect, cooperative - Neurologic Neurologic: CNII-XII intact, moves all extremities Results - Labs CBC & Chem 7: 02/04/21 05:47 02/04/21 05:47 Labs: Laboratory Last Values WBC 8.3 K/mm3 (4.5-11.0) 02/04/21 05:47 RBC 4.20 M/mm3 (3.65-5.03) 02/04/21 05:47 Hgb 13.1 gm/dl (11.8-15.2) 02/04/21 05:47 Hct 37.8 % (35.5-45.6) D 02/04/21 05:47 MCV 90 fl (84-94) 02/04/21 05:47 MCH 31 pg (28-32) 02/04/21 05:47 MCHC 35 % (32-34) H 02/04/21 05:47 RDW 13.3 % (13.2-15.2) 02/04/21 05:47 Plt Count 206 K/mm3 (140-440) 02/04/21 05:47 Lymph % (Auto) 18.5 % (13.4-35.0) 02/04/21 05:47 [place] % (Auto) 10.8 % (0.0-7.3) H 02/04/21 05:47 Eos % (Auto) 1.1 % (0.0-4.3) 02/04/21 05:47 Baso % (Auto) 0.5 % (0.0-1.8) 02/04/21 05:47 Lymph # (Auto) 1.5 K/mm3 (1.2-5.4) 02/04/21 05:47 [place] # (Auto) 0.9 K/mm3 (0.0-0.8) H 02/04/21 05:47 Eos # (Auto) 0.1 K/mm3 (0.0-0.4) 02/04/21 05:47 Baso # (Auto) 0.0 K/mm3 (0.0-0.1) 02/04/21 05:47 Seg Neutrophils % 69.1 % (40.0-70.0) 02/04/21 05:47 Seg Neutrophils # 5.7 K/mm3 (1.8-7.7) 02/04/21 05:47 Sodium 136 mmol/L (137-145) L 02/04/21 05:47 Potassium 4.1 mmol/L (3.6-5.0) 02/04/21 05:47 Chloride 100.4 mmol/L (98-107) 02/04/21 05:47 Carbon Dioxide 29 mmol/L (22-30) 02/04/21 05:47 Anion Gap 11 mmol/L 02/04/21 05:47 BUN 7 mg/dL (9-20) L 02/04/21 05:47 Creatinine 1.0 mg/dL (0.8-1.3) 02/04/21 05:47 Estimated GFR > 60 ml/min 02/04/21 05:47 BUN/Creatinine Ratio 7 % 02/04/21 05:47 Glucose 98 mg/dL (75-100) 02/04/21 05:47 POC Glucose 127 mg/dL (70-105) H 02/03/21 23:37 Calcium 9.4 mg/dL (8.4-10.2) 02/04/21 05:47 Total Bilirubin 2.70 mg/dL (0.1-1.2) H 02/04/21 05:47 AST 46 units/L (5-40) H 02/04/21 05:47 ALT 112 units/L (7-56) H 02/04/21 05:47 Alkaline Phosphatase 230 units/L (35-129) H 02/04/21 05:47 Total Protein 6.7 g/dL (6.3-8.2) 02/04/21 05:47 Albumin 3.7 g/dL (3.9-5) L 02/04/21 05:47 Albumin/Globulin Ratio 1.2 % 02/04/21 05:47 Lipase 16 units/L (13-60) 02/02/21 23:16 Urine Color [place] (Yellow) 02/02/21 22:56 Urine Turbidity Clear (Clear) 02/02/21 22:56 Urine pH 6.0 (5.0-7.0) 02/02/21 22:56 Ur Specific [place] 1.018 (1.003-1.030) 02/02/21 22:56 Urine Protein <15 mg/dl mg/dL (Negative) 02/02/21 22:56 Urine Glucose (UA) Neg mg/dL (Negative) 02/02/21 22:56 Urine Ketones Neg mg/dL (Negative) 02/02/21 22:56 Urine Blood Neg (Negative) 02/02/21 22:56 Urine Nitrite Neg (Negative) 02/02/21 22:56 Urine Bilirubin Neg (Negative) 02/02/21 22:56 Urine Urobilinogen 4.0 mg/dL (<2.0) 02/02/21 22:56 Ur Leukocyte Esterase Neg (Negative) 02/02/21 22:56 Urine WBC (Auto) 2.0 /HPF (0.0-6.0) 02/02/21 22:56 Urine RBC (Auto) 1.0 /HPF (0.0-6.0) 02/02/21 22:56 U Epithel Cells (Auto) < 1.0 /HPF (0-13.0) 02/02/21 22:56 Urine Mucus Few /HPF 02/02/21 22:56 [place]/IV: Voiding Method Toilet Active Medications - Current Medications Current Medications: Generic Name Dose Route Start Last Admin Trade Name Freq PRN Reason Stop Dose Admin Acetaminophen 650 mg 02/03/21 05:28 Acetaminophen 325 Mg Tab PO Q4H PRN Pain MILD(1-3)/Fever >100.5/MARTINS Albuterol/Ipratropium 1 ampul 02/03/21 08:00 02/04/21 13:59 Ipratropium/Albuterol Sulfate 3 Ml Ampul.Neb IH Not Given Q6HRT [facility] Famotidine 20 mg 02/03/21 10:00 02/04/21 09:17 Famotidine 20 Mg/2 Ml Inj IV 20 mg BID [facility] Administration Heparin Sodium (Porcine) 5,000 unit 02/03/21 06:00 02/04/21 12:59 Heparin 5,000 Unit/1 Ml Vial SUB-Q 5,000 unit Q8HR [facility] Administration Hydralazine HCl 10 mg 02/03/21 05:29 Hydralazine 20 Mg/1 Ml Inj IV Q6H PRN SBP >/=160; DBP >/=100 Dextrose/Sodium Chloride 1,000 mls @ 100 mls/hr 02/03/21 06:00 02/04/21 06:16 D5/0.45ns IV 100 mls/hr DIRECT [facility] Administration Piperacillin Sod/Tazobactam Sod 4.5 gm in 100 mls @ 200 mls/hr 02/03/21 10:00 02/04/21 09:16 Zosyn/Ns 4.5gm/100ml IV 200 mls/hr Q8H [facility] Administration Protocol Morphine Sulfate 2 mg 02/03/21 05:28 02/03/21 10:27 Morphine 2 Mg/1 Ml Inj IV 2 mg Q4H PRN Administration Pain, Moderate (4-6) Ondansetron HCl 4 mg 02/03/21 05:28 Ondansetron 4 Mg/2 Ml Inj IV Q8H PRN Nausea And Vomiting Polyethylene Glycol/Electrolytes 4,000 ml 02/04/21 16:00 Polyethylene Glycol/Elect Soln 4000 Ml PO 02/04/21 20:00 ONCE NR Sodium Chloride 10 ml 02/03/21 10:00 02/04/21 09:17 Sodium Chloride 0.9% 10 Ml Flush Syringe IV 10 ml BID [facility] Administration Sodium Chloride 10 ml 02/03/21 05:28 Sodium Chloride 0.9% 10 Ml Flush Syringe IV PRN PRN LINE FLUSH
[2021-02-04] MEDS ORDERED: POLYETHYLENE GLYCOL/ELECT SOLN 4000 ML PO NR (16:00)
--- NOTE | 2021-02-04 16:22 | Event Note ---
Date: 02/04/21 Pt seen and chart reviewed. WBC and VSS remain within normal limits. c/o crampy RLQ pain after drinking liquids. No n/v. Plan for cscope tomorrow. Surgical recs to follow. Discussed with patient and at bedside. All questions answered.
[2021-02-05] MEDS: PIPERACIL/TAZOBACTA 4.5/NS 100 4.5 GM/100 ML VIAL IV SCH ×3 (01:16→17:13)
[2021-02-05] MEDS: HEPARIN 5,000 UNIT/1 ML VIAL SUB-Q SCH ×3 (05:58→23:04)
[2021-02-05 06:12] LABS: Alanine Aminotransferase 89 units/L (7-56); Albumin 3.6 g/dL (3.9-5); BUN/Creatinine Ratio 5; Blood Urea Nitrogen 5 mg/dL (9-20); Calcium 9.2 mg/dL (8.4-10.2); Hemolysis Index 3
--- NOTE | 2021-02-05 07:41 | Anesthesia Consultation ---
Anesthesia Consult and Med Hx Date of service: 02/05/21 - Airway Anesthetic Teeth Evaluation: Good ROM Head & Neck: Adequate Mental/Hyoid Distance: Adequate Mallampati Class: Class II Intubation Access Assessment: Good - Pulmonary Exam CTA: Yes - Cardiac Exam Cardiac Exam: RRR - Pre-Operative Health Status ASA Pre-Surgery Classification: ASA1 Proposed Anesthetic Plan: MAC - Pulmonary Hx Asthma: No COPD: No Hx Pneumonia: No - Endocrine Hx End Stage Renal Disease: No - Other Systems Hx Alcohol Use: Yes (social) Hx Substance Use: No
--- NOTE | 2021-02-05 07:41 | Anesthesia Day of Surgery ---
Anesthesia Day of Surgery - Day of Surgery Patient Examined: Yes Patient H&P Reviewed: Yes Patient is NPO: Yes
[2021-02-05] MEDS ORDERED: WATER FOR IRRIG STERILE 1,000 ML BOTTLE ONE (07:44)
[2021-02-05] MEDS ORDERED: WATER FOR IRRIG STERILE 250 ML BOTTLE IR ONE (07:44)
[2021-02-05] MEDS ORDERED: propofoL 200 MG/20 ML VIAL IV ONE (07:46)
[2021-02-05] MEDS ORDERED: SODIUM CHLORIDE 0.9% 1000 ML 1,000 ML ONE (07:50)
[2021-02-05] MEDS ORDERED: MIDAZOLAM 2 MG/2 ML INJ ONE (07:56)
[2021-02-05] MEDS ORDERED: LIDOCAINE MPF (2%) 20 MG/1 ML VIAL 5 ML ONE (08:03)
--- NOTE | 2021-02-05 08:13 | Operative Report ---
Operative Report Operative Report: DOS: 02/05/21 SURGEON: Salvador Pickard MD COLONOSCOPY WITH BIOPSY REPORT PREOPERATIVE AND POSTOPERATIVE DIAGNOSIS: Abnormal CAT scan of the abdomen DESCRIPTION OF PROCEDURE: The colonoscope was passed to the terminal ileum as identified by the ileal tissue. Scope was carefully withdrawn. Retroflexion was performed in the rectum. At the end of procedure, the scope was cleaned using normal technique. Vital signs monitored continuously throughout. SEDATION: Provided by Anesthesiology Services. Quality of the prep was adequate, but views were limited since minimal air insufflation was utilized to decrease the risk of complications during the procedure COMPLICATIONS: None. ESTIMATED BLOOD LOSS: Minimal FINDINGS: * Normal terminal ileum * Focal area of edema erythema inflammation in the proximal ascending colon approximately 2 cm in length. Endoscopic appearance most consistent with acute inflammation. No evidence for malignancy based upon appearance. Cold forceps used to obtain multiple biopsies from the area * Remainder of exam was unremarkable though I was using minimal air to insufflate the colon therefore views were very limited and not adequate for small to medium sized polyp detection RECOMMENDATIONS: * No evidence for malignancy this is most likely a focal colitis. GI will sign off patient can follow-up with me as an outpatient
--- NOTE | 2021-02-05 08:34 | Post Anesthesia Evaluation ---
- Post Anesthesia Evaluation Patient Participated: Yes Airway Patent: Yes Stable Respiratory Function: Yes Nausea/Vomiting: No Temp > 96.8F: Yes Pain Manageable: Yes Adequeate Hydration: Yes
[2021-02-05] MEDS: FAMOTIDINE 20 MG/2 ML INJ IV SCH ×2 (09:09→23:05)
--- NOTE | 2021-02-05 10:52 | Progress Note ---
Assessment and Plan Assessment and plan: --Contained perforation of colon/focal colitis Current Visit: Yes Status: Acute Negative colonoscopy 02/05/2021, no evidence of malignancy Clear liquids advance as tolerated, GI signed off Follow-up as outpatient upon discharge Continue supportive care --Abdominal pain Current Visit: Yes Status: Acute Improved symptomatic management, IV fluids and pain medications s/p colonoscopy, negative for malignancy --Intractable nausea vomiting; Current Visit: Yes Status: Acute Significantly improved --Colon wall thickening with contained perforation Current Visit: Yes Status: Acute Negative malignancy /tumor on colonoscopy Zosyn 4.5 g IV every 8 hours. Focal colitis, continue antibiotics Clear liquids advance diet as tolerated -- DVT prophylaxis Current Visit: Yes Status: Acute Heparin 5000 units subcu every 8 hours for DVT prophylaxis. --GI prophylaxis Pepcid 20 mg IV every 12 hours. Increase ambulation, clear liquids advance as tolerated Possible discharge home tomorrow if GI and surgery clears Patient will follow up with GI and surgery upon discharge Rest of the work-up as outpatient Plan of care reviewed with the patient and his nurse History Interval history: I have seen and examined the patient at the bedside Patient's chart and medications reviewed. No new events reported by the nursing Patient underwent colonoscopy, no evidence of tumor or malignancy Possible focal colitis per GI Patient feels slightly better no nausea vomiting Vital signs noted Hospitalist Physical - Constitutional Vitals: Temp Pulse Resp BP Pulse Ox 98.4 F 68 18 106/64 98 02/05/21 09:00 02/05/21 09:00 02/05/21 10:22 02/05/21 09:00 02/05/21 10:22 General appearance: Present: no acute distress, well-nourished - EENT Eyes: Present: PERRL, EOM intact - Neck Neck: Present: supple, normal ROM - Respiratory Respiratory effort: normal, labored Respiratory: bilateral: diminished, negative: rales, rhonchi - Cardiovascular Rhythm: regular Heart Sounds: Present: S1 & S2 - Extremities Extremities: no ischemia, No edema - Abdominal General gastrointestinal: soft, non-tender, non-distended, normal bowel sounds - Integumentary Integumentary: Present: clear, warm - Psychiatric Psychiatric: appropriate mood/affect, cooperative - Neurologic Neurologic: CNII-XII intact, moves all extremities Results - Labs CBC & Chem 7: 02/04/21 05:47 02/05/21 05:06 Labs: Laboratory Last Values WBC 8.3 K/mm3 (4.5-11.0) 02/04/21 05:47 RBC 4.20 M/mm3 (3.65-5.03) 02/04/21 05:47 Hgb 13.1 gm/dl (11.8-15.2) 02/04/21 05:47 Hct 37.8 % (35.5-45.6) D 02/04/21 05:47 MCV 90 fl (84-94) 02/04/21 05:47 MCH 31 pg (28-32) 02/04/21 05:47 MCHC 35 % (32-34) H 02/04/21 05:47 RDW 13.3 % (13.2-15.2) 02/04/21 05:47 Plt Count 206 K/mm3 (140-440) 02/04/21 05:47 Lymph % (Auto) 18.5 % (13.4-35.0) 02/04/21 05:47 [place] % (Auto) 10.8 % (0.0-7.3) H 02/04/21 05:47 Eos % (Auto) 1.1 % (0.0-4.3) 02/04/21 05:47 Baso % (Auto) 0.5 % (0.0-1.8) 02/04/21 05:47 Lymph # (Auto) 1.5 K/mm3 (1.2-5.4) 02/04/21 05:47 [place] # (Auto) 0.9 K/mm3 (0.0-0.8) H 02/04/21 05:47 Eos # (Auto) 0.1 K/mm3 (0.0-0.4) 02/04/21 05:47 Baso # (Auto) 0.0 K/mm3 (0.0-0.1) 02/04/21 05:47 Seg Neutrophils % 69.1 % (40.0-70.0) 02/04/21 05:47 Seg Neutrophils # 5.7 K/mm3 (1.8-7.7) 02/04/21 05:47 Sodium 140 mmol/L (137-145) 02/05/21 05:06 Potassium 3.9 mmol/L (3.6-5.0) 02/05/21 05:06 Chloride 102.8 mmol/L (98-107) 02/05/21 05:06 Carbon Dioxide 30 mmol/L (22-30) 02/05/21 05:06 Anion Gap 11 mmol/L 02/05/21 05:06 BUN 5 mg/dL (9-20) L 02/05/21 05:06 Creatinine 1.0 mg/dL (0.8-1.3) 02/05/21 05:06 Estimated GFR > 60 ml/min 02/05/21 05:06 BUN/Creatinine Ratio 5 % 02/05/21 05:06 Glucose 106 mg/dL (75-100) H 02/05/21 05:06 POC Glucose 127 mg/dL (70-105) H 02/03/21 23:37 Calcium 9.2 mg/dL (8.4-10.2) 02/05/21 05:06 Phosphorus 2.70 mg/dL (2.5-4.5) 02/05/21 05:06 Magnesium 2.10 mg/dL (1.7-2.3) 02/05/21 05:06 Total Bilirubin 1.60 mg/dL (0.1-1.2) H 02/05/21 05:06 AST 37 units/L (5-40) 02/05/21 05:06 ALT 89 units/L (7-56) H 02/05/21 05:06 Alkaline Phosphatase 222 units/L (35-129) H 02/05/21 05:06 Total Protein 6.7 g/dL (6.3-8.2) 02/05/21 05:06 Albumin 3.6 g/dL (3.9-5) L 02/05/21 05:06 Albumin/Globulin Ratio 1.2 % 02/05/21 05:06 Lipase 16 units/L (13-60) 02/02/21 23:16 Urine Color [place] (Yellow) 02/02/21 22:56 Urine Turbidity Clear (Clear) 02/02/21 22:56 Urine pH 6.0 (5.0-7.0) 02/02/21 22:56 Ur Specific [place] 1.018 (1.003-1.030) 02/02/21 22:56 Urine Protein <15 mg/dl mg/dL (Negative) 02/02/21 22:56 Urine Glucose (UA) Neg mg/dL (Negative) 02/02/21 22:56 Urine Ketones Neg mg/dL (Negative) 02/02/21 22:56 Urine Blood Neg (Negative) 02/02/21 22:56 Urine Nitrite Neg (Negative) 02/02/21 22:56 Urine Bilirubin Neg (Negative) 02/02/21 22:56 Urine Urobilinogen 4.0 mg/dL (<2.0) 02/02/21 22:56 Ur Leukocyte Esterase Neg (Negative) 02/02/21 22:56 Urine WBC (Auto) 2.0 /HPF (0.0-6.0) 02/02/21 22:56 Urine RBC (Auto) 1.0 /HPF (0.0-6.0) 02/02/21 22:56 U Epithel Cells (Auto) < 1.0 /HPF (0-13.0) 02/02/21 22:56 Urine Mucus Few /HPF 02/02/21 22:56 [place]/IV: Voiding Method Toilet Active Medications - Current Medications Current Medications: Generic Name Dose Route Start Last Admin Trade Name Freq PRN Reason Stop Dose Admin Acetaminophen 650 mg 02/03/21 05:28 Acetaminophen 325 Mg Tab PO Q4H PRN Pain MILD(1-3)/Fever >100.5/MARTINS Famotidine 20 mg 02/03/21 10:00 02/05/21 09:09 Famotidine 20 Mg/2 Ml Inj IV 20 mg BID LIV Administration Heparin Sodium (Porcine) 5,000 unit 02/03/21 06:00 02/05/21 05:58 Heparin 5,000 Unit/1 Ml Vial SUB-Q 5,000 unit Q8HR LIV Administration Hydralazine HCl 10 mg 02/03/21 05:29 Hydralazine 20 Mg/1 Ml Inj IV Q6H PRN SBP >/=160; DBP >/=100 Dextrose/Sodium Chloride 1,000 mls @ 100 mls/hr 02/03/21 06:00 02/04/21 22:40 D5/0.45ns IV 100 mls/hr DIRECT LIV Administration Piperacillin Sod/Tazobactam Sod 4.5 gm in 100 mls @ 200 mls/hr 02/03/21 10:00 02/05/21 09:09 Zosyn/Ns 4.5gm/100ml IV 200 mls/hr Q8H LIV Administration Protocol Morphine Sulfate 2 mg 02/03/21 05:28 02/03/21 10:27 Morphine 2 Mg/1 Ml Inj IV 2 mg Q4H PRN Administration Pain, Moderate (4-6) Ondansetron HCl 4 mg 02/03/21 05:28 Ondansetron 4 Mg/2 Ml Inj IV Q8H PRN Nausea And Vomiting Sodium Chloride 10 ml 02/03/21 10:00 02/05/21 09:10 Sodium Chloride 0.9% 10 Ml Flush Syringe IV 10 ml BID LIV Administration Sodium Chloride 10 ml 02/03/21 05:28 Sodium Chloride 0.9% 10 Ml Flush Syringe IV PRN PRN LINE FLUSH
[2021-02-05] MEDS: D5W/0.45% NACL 1,000 ML IV SCH ×2 (11:43→23:21)
--- NOTE | 2021-02-05 19:25 | Progress Note ---
Assessment and Plan 40-year-old male with right sided abdominal pain, ascending colon thickening with contained perf, concern for colon mass C scope 02/05/2021" Focal area of edema erythema inflammation in the proximal ascending colon approximately 2 cm in length. Endoscopic appearance most consistent with acute inflammation. No evidence for malignancy based upon appearance." Plan: 1. adv to soft diet 2. continue abx upon dc x14 days total - augmentin 3. prn pain control 4. Advised patient to maintain soft diet for next 10 days and then advance to hi gh fiber diet. Also educated to increase water intake and to avoid fast food diet. Chronic Disease Manager consult ordered 5. No acute surgical intervention indicated. May dc in am. Thank you . Please call with any questions or concerns. Evaluation and treatment of this patient was during the time of the national and state emergency arising from COVID19 coronavirus pandemic. Treatment and proced ures performed meet the current and available best practice and guidelines for patient during the COVID pandemic. Subjective Date of service: 02/05/21 Narrative: Patient seen and examined. He states he feels much better. His pain is almost completely resolved. He is tolerating a diet. No nausea or vomiting. Afebril e. Objective Vital Signs - 12hr 02/05/21 02/05/21 02/05/21 07:30 08:12 08:15 Temperature 97.6 F 97.4 F L Pulse Rate 71 64 61 Respiratory 18 10 L 12 Rate Blood Pressure 131/84 89/36 88/41 O2 Sat by Pulse 98 100 99 Oximetry 02/05/21 02/05/21 02/05/21 08:20 08:25 08:40 Temperature Pulse Rate 57 L 51 L 58 L Respiratory 17 12 14 Rate Blood Pressure 89/40 91/41 99/55 O2 Sat by Pulse 97 99 100 Oximetry 02/05/21 02/05/21 02/05/21 08:55 09:00 10:22 Temperature 98.4 F Pulse Rate 65 68 Respiratory 14 15 18 Rate Blood Pressure 105/60 106/64 O2 Sat by Pulse 100 100 98 Oximetry 02/05/21 02/05/21 11:14 15:45 Temperature 97.7 F 97.7 F Pulse Rate 60 56 L Respiratory 18 18 Rate Blood Pressure 136/87 121/71 O2 Sat by Pulse 96 100 Oximetry - General physical appearance Narrative Exam: Gen.: Awake, alert, oriented x3. No apparent distress ENT: Trachea midline. No lymphadenopathy. No scleral icterus or conjunctival pallor CV: S1, S2 present Respiratory: No audible wheezes Abdomen: Soft, nondistended, nontender. No rebound, rigidity, guarding Extremities: No clubbing, cyanosis, edema - Labs 02/04/21 05:47 02/05/21 05:06 Diabetes panel 02/05/21 Range/Units 05:06 Sodium 140 (137-145) mmol/L Potassium 3.9 (3.6-5.0) mmol/L Chloride 102.8 (98-107) mmol/L Carbon Dioxide 30 (22-30) mmol/L BUN 5 L (9-20) mg/dL Creatinine 1.0 (0.8-1.3) mg/dL Glucose 106 H (75-100) mg/dL Calcium 9.2 (8.4-10.2) mg/dL AST 37 (5-40) units/L ALT 89 H (7-56) units/L Alkaline Phosphatase 222 H (35-129) units/L Total Protein 6.7 (6.3-8.2) g/dL Albumin 3.6 L (3.9-5) g/dL Calcium panel 02/05/21 Range/Units 05:06 Calcium 9.2 (8.4-10.2) mg/dL Phosphorus 2.70 (2.5-4.5) mg/dL Albumin 3.6 L (3.9-5) g/dL Pituitary panel 02/05/21 Range/Units 05:06 Sodium 140 (137-145) mmol/L Potassium 3.9 (3.6-5.0) mmol/L Chloride 102.8 (98-107) mmol/L Carbon Dioxide 30 (22-30) mmol/L BUN 5 L (9-20) mg/dL Creatinine 1.0 (0.8-1.3) mg/dL Glucose 106 H (75-100) mg/dL Calcium 9.2 (8.4-10.2) mg/dL Adrenal panel 02/05/21 Range/Units 05:06 Sodium 140 (137-145) mmol/L Potassium 3.9 (3.6-5.0) mmol/L Chloride 102.8 (98-107) mmol/L Carbon Dioxide 30 (22-30) mmol/L BUN 5 L (9-20) mg/dL Creatinine 1.0 (0.8-1.3) mg/dL Glucose 106 H (75-100) mg/dL Calcium 9.2 (8.4-10.2) mg/dL Total Bilirubin 1.60 H (0.1-1.2) mg/dL AST 37 (5-40) units/L ALT 89 H (7-56) units/L Alkaline Phosphatase 222 H (35-129) units/L Total Protein 6.7 (6.3-8.2) g/dL Albumin 3.6 L (3.9-5) g/dL
[2021-02-06] MEDS: PIPERACIL/TAZOBACTA 4.5/NS 100 4.5 GM/100 ML VIAL IV SCH ×2 (02:15→09:12)
[2021-02-06] MEDS: HEPARIN 5,000 UNIT/1 ML VIAL SUB-Q SCH (06:14)
[2021-02-06 08:38] VITALS: BP 123/71
[2021-02-06] MEDS: FAMOTIDINE 20 MG/2 ML INJ IV SCH (09:10)
[2021-02-06] MEDS ORDERED: AMOXICILLIN/K CLAV 875/125MG TAB PO SCH ×2 (10:00→22:00)
--- NOTE | 2021-02-06 10:38 | Discharge Summary ---
Providers - Providers Date of Admission: 02/03/21 04:38 Date of discharge: 02/06/21 Attending physician: MATTHEW PETERSON 02/03/21 02:42 Consult to Physician [CONS] Stat Comment: GLO Singh spoke with Dr. Otto @ [phone] Consulting Provider: CHANI OTTO Physician Instructions: Reason For Exam: perforation 02/03/21 16:00 Consult to Physician [CONS] Routine Comment: Consulting Provider: PEBBLES CRUZ Physician Instructions: Reason For Exam: ascending colon mass? 02/05/21 19:23 Consult to Dietitian/Nutrition [CONS] Routine Physician Instructions: Reason For Exam: High fiber diet Reason for Consult: Diet education Primary care physician: GRID MOLDER Hospitalization Reason for admission: Abdominal pain Condition: Stable Hospital course: --Contained perforation of colon/focal colitis Current Visit: Yes Status: Acute Negative colonoscopy 02/05/2021, no evidence of malignancy Clear liquids advance as tolerated, GI signed off Follow-up as outpatient upon discharge Continue supportive care --Abdominal pain Current Visit: Yes Status: Acute Improved symptomatic management, IV fluids and pain medications s/p colonoscopy, negative for malignancy --Intractable nausea vomiting; Current Visit: Yes Status: Acute Significantly improved --Colon wall thickening with contained perforation Current Visit: Yes Status: Acute Negative malignancy /tumor on colonoscopy Zosyn 4.5 g IV every 8 hours. Focal colitis, continue antibiotics Clear liquids advance diet as tolerated -- DVT prophylaxis Current Visit: Yes Status: Acute Heparin 5000 units subcu every 8 hours for DVT prophylaxis. --GI prophylaxis Pepcid 20 mg IV every 12 hours. Disposition: - TO HOME OR SELFCARE Final Discharge Diagnosis (Prints w/discharge instructions): Focal colitis. Abdominal pain. Intractable nausea vomiting. Colon thickening. Obesity BMI 31.1 Time spent for discharge: 35 min Core Measure Documentation - Palliative Care Palliative Care/ Comfort Measures: Not Applicable - Core Measures Any of the following diagnoses?: none Exam - Constitutional Vitals: Temp Pulse Resp BP Pulse Ox 98.4 F 63 18 123/71 97 02/06/21 08:23 02/06/21 08:23 02/06/21 08:23 02/06/21 08:23 02/06/21 08:23 General appearance: Present: no acute distress, well-nourished - EENT Eyes: Present: PERRL, EOM intact - Neck Neck: Present: supple, normal ROM - Respiratory Respiratory effort: normal Respiratory: bilateral: diminished, negative: rales, rhonchi, wheezing - Cardiovascular Rhythm: regular Heart Sounds: Present: S1 & S2 - Extremities Extremities: no ischemia, No edema - Abdominal General gastrointestinal: Present: soft, non-tender, non-distended, normal bowel sounds - Integumentary Integumentary: Present: clear, warm - Musculoskeletal Musculoskeletal: strength equal bilaterally, generalized weakness - Psychiatric Psychiatric: appropriate mood/affect, cooperative - Neurologic Neurologic: moves all extremities Plan Activity: advance as tolerated Diet: other (Soft diet for 10 days[recommended by surgery]) Additional Instructions: Surgeon advised patient to maintain soft diet for next 10 days and then advance to high fiber diet. Also educated to increase water intake and to avoid fast food diet. If you have worsening symptoms contact MD or go to emergency room as needed Follow up with: PRIMARY CARE, [Primary Care Provider] - 3-5 Days PEBBLES CRUZ MD [Staff Physician] - 14 Days CHANI OTTO DO [Staff Physician] - 14 Days Prescriptions: Amoxicillin/K Clav Tab [Augmentin 875MG TAB] 1 each PO Q12HR #28 tablet Famotidine [Pepcid] 20 mg PO BID #20 tablet oxyCODONE /ACETAMINOPHEN [Percocet 5/325] 1 tab PO Q8H PRN #15 tablet PRN Reason: Pain Ondansetron [Zofran Odt] 4 mg PO Q8HR PRN #20 tab.rapdis PRN Reason: Nausea And Vomiting
[2021-02-06] MEDS ORDERED: FAMOTIDINE 20 MG TAB PO SCH (22:00)
== END 2021-02-06 14:36 | disposition home or self-care (01) | DRG 393 ==
LOC: ED 22:32 → 4A 02-03 04:38
PROVIDERS: ADMIT Hospitalist; ATTEND Internal Medicine
PROC: 0DBK8ZX Excision of Ascending Colon, Via Natural or Artificial Opening Endoscopic, Diagnostic (ICD-10-PCS; principal; 2021-02-05)
DX: K63.9 Disease of intestine, unspecified (principal); K63.1 Perforation of intestine (nontraumatic); K52.89 Other specified noninfective gastroenteritis and colitis; E66.9 Obesity, unspecified; Z68.31 Body mass index [BMI] 31.0-31.9, adult
CPT/HCPCS: 36415; 74177; 80053; 81001; 82378; 82962; 83690; 83735; 84100; 85025; 88305; 94640; 96365; 96375; G0378; J1644; J2250; J2270; J2405; J2543; J2704; J7030; Q9967

== ENCOUNTER 2021-09-20 19:31 | Emergency (ER) | payer OTHER ==
[2021-09-20] MEDS ORDERED: IBUPROFEN 600 MG TAB PO ONE (23:06)
[2021-09-20] MEDS ORDERED: oxyCODONE /ACETAMINOPHEN 5-325MG TAB PO ONE (23:06)
[2021-09-20] MEDS ORDERED: AMOXICILLIN/K CLAV 875/125MG TAB PO ONE (23:06)
[2021-09-20] MEDS ORDERED: ONDANSETRON 4 MG ODT TAB PO ONE (23:07)
--- NOTE | 2021-09-20 23:13 | Emergency Department Report ---
ED General Adult HPI - General Chief complaint: Dental/Oral Stated complaint: TOOTHACHE Source: patient Mode of arrival: Ambulatory Limitations: No Limitations - History of Present Illness Initial comments: Patient is a 41-year-old -[place] male with no past medical history presents to the ED with complaint of acute onset persistent severe left mandibular premolar molar toothache with swollen gums for the last 1 week. Patient also states that in the last 24 hours, the pain has worsened such that now the pain radiates to the left ear and that he is unable to sleep because of worsening pain. Patient denies dizziness, syncope, nausea and vomiting, headache, chest pain, shortness of breath, sore throat, nasal and sinus congestion, traumatic injury, neck pain, fever and chills or abdominal pain, nausea and vomiting. MD Complaint: Left mandibular premolar and molar toothache; left ear pain -: Sudden, week(s) (1) Location: face (left ear), mouth (left mandibular premolar and molar teeth) Radiation: non-radiation Severity scale (0 -10): 9 Quality: aching, sharp Consistency: constant Improves with: none Worsens with: none Associated Symptoms: denies other symptoms, loss of appetite. denies: confusion, chest pain, cough, diaphoresis, fever/chills, headaches, malaise, nausea/vomiting, rash, shortness of breath, syncope, weakness Treatments Prior to Arrival: NSAID - Related Data Previous Rx's Medication Instructions Recorded Last Taken Type Amoxicillin/K Clav Tab [Augmentin 1 each PO Q12HR #28 tablet 02/06/21 Unknown Rx 875MG TAB] Famotidine [Pepcid] 20 mg PO BID #20 tablet 02/06/21 Unknown Rx Ondansetron [Zofran Odt] 4 mg PO Q8HR PRN #20 tab.rapdis 02/06/21 Unknown Rx oxyCODONE /ACETAMINOPHEN [Percocet 1 tab PO Q8H PRN #15 tablet 02/06/21 Unknown Rx 5/325] Clindamycin [Clindamycin CAP] 300 mg PO Q6H #40 cap 09/20/21 Unknown Rx Ketorolac [Toradol] 10 mg PO Q8H PRN #20 tab 09/20/21 Unknown Rx traMADoL [Ultram] 50 mg PO Q6HR PRN #12 tablet 09/20/21 Unknown Rx Allergies Allergy/AdvReac Type Severity Reaction Status Date / Time No Known Allergies Allergy Verified 02/03/21 05:37 ED Review of Systems ROS: Stated complaint: TOOTHACHE Other details as noted in HPI Constitutional: denies: chills, fever Eyes: denies: eye pain, eye discharge, vision change ENT: ear pain (left ear pain), dental pain (left mandibular premolar and molar toothache; swollen gums). denies: throat pain, hearing loss, congestion Respiratory: denies: cough, shortness of breath, wheezing Cardiovascular: denies: chest pain, palpitations Endocrine: no symptoms reported Gastrointestinal: denies: abdominal pain, nausea, vomiting, diarrhea Genitourinary: denies: urgency, dysuria Musculoskeletal: denies: back pain, joint swelling, arthralgia Skin: denies: rash, lesions Neurological: denies: headache, weakness, paresthesias Psychiatric: denies: anxiety, depression Hematological/Lymphatic: denies: easy bleeding, easy bruising ED Past Medical Hx - Past Medical History Previous Medical History?: No Hx Congestive Heart Failure: No Hx Diabetes: No Hx Asthma: No Hx COPD: No - Surgical History Past Surgical History?: No - Social History Smoking Status: Never Smoker - Medications Home Medications: Home Medications Medication Instructions Recorded Confirmed Last Taken Type Amoxicillin/K Clav Tab [Augmentin 1 each PO Q12HR #28 tablet 02/06/21 Unknown Rx 875MG TAB] Famotidine [Pepcid] 20 mg PO BID #20 tablet 02/06/21 Unknown Rx Ondansetron [Zofran Odt] 4 mg PO Q8HR PRN #20 tab.rapdis 02/06/21 Unknown Rx oxyCODONE /ACETAMINOPHEN [Percocet 1 tab PO Q8H PRN #15 tablet 02/06/21 Unknown Rx 5/325] Clindamycin [Clindamycin CAP] 300 mg PO Q6H #40 cap 09/20/21 Unknown Rx Ketorolac [Toradol] 10 mg PO Q8H PRN #20 tab 09/20/21 Unknown Rx traMADoL [Ultram] 50 mg PO Q6HR PRN #12 tablet 09/20/21 Unknown Rx ED Physical Exam - General Limitations: No Limitations General appearance: alert, in no apparent distress - Head Head exam: Present: atraumatic, normocephalic, normal inspection - Eye Eye exam: Present: normal appearance, PERRL, EOMI Pupils: Present: normal accommodation - ENT ENT exam: Present: mucous membranes moist, TM's normal bilaterally, normal external ear exam, other (Swollen, tender left mandibular gingiva; tender left mandibular premolar and molar teeth; multiple dental caries) - Neck Neck exam: Present: normal inspection, full ROM. Absent: tenderness - Respiratory Respiratory exam: Present: normal lung sounds bilaterally. Absent: respiratory distress, wheezes, rales, stridor, chest wall tenderness, accessory muscle use, decreased breath sounds - Cardiovascular Cardiovascular Exam: Present: regular rate, normal rhythm, normal heart sounds. Absent: systolic murmur, diastolic murmur, rubs, gallop - GI/Abdominal GI/Abdominal exam: Present: soft, normal bowel sounds. Absent: tenderness, guarding, rebound, hyperactive bowel sounds, hypoactive bowel sounds, organomegaly - Extremities Exam Extremities exam: Present: normal inspection, full ROM, normal capillary refill - Back Exam Back exam: Present: normal inspection, full ROM. Absent: tenderness, muscle spasm, paraspinal tenderness, vertebral tenderness - Neurological Exam Neurological exam: Present: alert, oriented X3, CN II-XII intact, normal gait, reflexes normal - Psychiatric Psychiatric exam: Present: normal affect, normal mood - Skin Skin exam: Present: warm, dry, intact, normal color. Absent: rash ED Course Vital Signs 09/20/21 22:57 Temperature 98 F Pulse Rate 65 Respiratory 18 Rate Blood Pressure 170/111 [Right] O2 Sat by Pulse 98 Oximetry ED Medical Decision Making - Medical Decision Making This is a 41-year-old -[place] male with no past medical history presents to the ED with complaint of acute onset persistent severe left mandibular premolar molar toothache with swollen gums for the last 1 week. Patient also states that in the last 24 hours, the pain has worsened such that now the pain radiates to the left ear and that he is unable to sleep because of worsening pain. In the ED, patient is alert and oriented x3 and is not in distress but appears to be in significant pain. Patient was treated for pain in the ED and also given initial oral antibiotics. On reevaluation, patient pain is well controlled medication. Patient was discharged home on pain medications and oral antibiotics and advised to follow-up with his dentist or primary care physician in 7 to 10 days for reevaluation. Patient was advised to return to the ED immediately if symptoms get worse. - Differential Diagnosis dental abscess; gingivitis; dental caries Critical care attestation.: If time is entered above; I have spent that time in minutes in the direct care of this critically ill patient, excluding procedure time. ED Disposition Clinical Impression: Dental caries, Dental abscess, Acute gingivitis Disposition: HOME / SELF CARE / HOMELESS Is pt being admited?: No Does the pt Need Aspirin: No Condition: Stable Instructions: Dental Abscess, [id number], Trench Mouth Additional Instructions: Take medication with food, drink plenty of fluids and follow-up with your dentist or primary care physician in 7 to 10 days for reevaluation. Return to the ED immediately if symptoms get worse. Prescriptions: Clindamycin [Clindamycin CAP] 300 mg PO Q6H #40 cap Ketorolac [Toradol] 10 mg PO Q8H PRN #20 tab PRN Reason: Pain traMADoL [Ultram] 50 mg PO Q6HR PRN #12 tablet PRN Reason: Pain Referrals: [facility] [Outside] - 7-10 days Time of Disposition: 23:16 Print Language: WOLOF
[2021-09-21 01:04] VITALS: BP 130/78
== END 2021-09-21 01:03 | disposition home or self-care (01) ==
LOC: ED 19:31
DX: K02.9 Dental caries, unspecified (principal); K04.7 Periapical abscess without sinus; K05.10 Chronic gingivitis, plaque induced
CPT/HCPCS: 99282; J3490; Q0162